=== PATIENT | female | born 1945 | race Caucasian/White ===

== ENCOUNTER → 2017-05-09 10:35 | Outpatient (CLI) | payer MEDICARE, SELFPAY ==
[2017-05-09 13:36] LABS: Basophils # 0.1 K/mm3 (0-0.2); Basophils % 0.5 % (0.1-2.0); Eosinophils # 0.3 K/mm3 (0.0-0.4); Hematocrit 39.6 % (37.0-47.0); Hemoglobin 12.8 g/dL (12.2-16.2); Lymphocytes # 2.7 K/mm3 (0.7-4.5); Lymphocytes % 25.3 K/mm3 (10-50); Mean Corpuscular HGB Conc 32.5 g/dL (31.8-35.4); Mean Corpuscular Hemoglobin 30.1 pg (27.0-31.2); Mean Corpuscular Volume 92.8 fl (81-99); Mean Platelet Volume 8.4 fl (7.4-10.4); Monocytes # 0.4 K/mm3 (0.1-1.0); Monocytes % 4.2 % (1.7-9.3); Neutrophils % 66.9 % (37.0-80.0); Platelet Count 273 K/mm3 (142-424); Red Blood Count 4.27 M/mm3 (4.20-5.40); Red Cell Distribution Width 14.5 % (11.5-17.5); White Blood Count 10.5 K/mm3 (4.8-10.8)
[2017-05-09 14:43] LABS: Albumin Level 3.4 gm/dL (3.4-5.0); Phosphorous 4.2 mg/dL (2.4-4.9)
[2017-05-09 14:47] LABS: Aspartate Amino Transferase 9 U/L (15-37)
[2017-05-09 15:07] LABS: Alanine Aminotransferase 33 U/L (12-78); Alkaline Phosphatase 107 U/L (46-116); Bilirubin,Direct 0.1 mg/dL (0.0-0.2); Bilirubin,Total 0.3 mg/dL (0.2-1.0); Calcium 8.9 mg/dL (8.5-10.1); Creatinine,Serum 1.91 mg/dL (0.55-1.02); Estimated Glomerular Filt Rate 26 ml/min (>60); GFR (African American) 32 ML/MIN (>60); Total Protein,Serum 6.8 gm/dL (6.4-8.2)
[2017-05-10 19:09] LABS: Vitamin D 25 Hydroxy 26.5 ng/mL (30.0-100.0)
[2017-05-11 21:18] LABS: Parathyroid Hormone Intact 42 pg/mL (15-65)
== END ==
PROVIDERS: PCP Internal Medicine Adolescent Medicine; Visit Provider Orthopaedic Surgery
DX: M81.0 Age-related osteoporosis without current pathological fracture (principal); Z79.899 Other long term (current) drug therapy
CPT/HCPCS: 36415; 80076; 82310; 82565; 82652; 83970; 84100; 85025

== ENCOUNTER → 2017-06-26 09:54 | Outpatient (CLI) | payer MEDICARE, SELFPAY ==
[2017-06-26 10:18] LABS: Anion Gap 10.6 mEq/L (5-15); Blood Urea Nitrogen 31 mg/dL (7-18); Carbon Dioxide 28 mmol/L (21.0-32.0); Chloride 105 mmol/L (98-107); Creatinine,Serum 1.52 mg/dL (0.55-1.02); Estimated Glomerular Filt Rate 34 ml/min (>60); GFR (African American) 41 ML/MIN (>60); Glucose 96 mg/dL (74-106); Potassium 3.6 mmoL/L (3.5-5.1); Sodium 140 mmol/L (136-145)
== END ==
PROVIDERS: Visit Provider Internal Medicine Adolescent Medicine
DX: E87.5 Hyperkalemia (principal)
CPT/HCPCS: 36415; 80048

== ENCOUNTER → 2017-09-17 12:02 | Outpatient (CLI) | payer MEDICARE, SELFPAY ==
--- NOTE | 2017-09-17 12:16 | XR_ITS ---
EXAM: XR lumbar spine min 4V HISTORY: ITS.REASON: LOW BACK PAIN ORDERING PHYSICIAN: Lukas Birmingham MD PATIENT AGE: 71 years COMPARISON: [id number] FINDINGS: There is normal alignment. No acute fracture or dislocation. Degenerative disc disease is present in the lower thoracic and lumbar spine from T9 to S1. There is mild anterolisthesis of L5 on S1 of 5 mm. Endplate osteophytes are present at multiple levels and there is facet hypertrophic change at L4-5 and L5-S1. There is mild sclerosis of the infra aspect of the SI joints. Injection granuloma noted in the right gluteal region. IMPRESSION: Lumbar spondylosis with degenerative disc disease and facet arthritic change
[2017-09-17 13:47] LABS: Anion Gap 13.6 mEq/L (5-15); Blood Urea Nitrogen 26 mg/dL (7-18); Carbon Dioxide 25 mmol/L (21.0-32.0); Chloride 104 mmol/L (98-107); Creatinine,Serum 1.58 mg/dL (0.55-1.02); Estimated Glomerular Filt Rate 32 ml/min (>60); GFR (African American) 39 ML/MIN (>60); Glucose 100 mg/dL (74-106); Magnesium 1.6 mg/dL (1.4-2.2); Potassium 3.6 mmoL/L (3.5-5.1); Sodium 139 mmol/L (136-145)
== END ==
PROVIDERS: PCP Internal Medicine Adolescent Medicine; Visit Provider Internal Medicine Adolescent Medicine
DX: M54.5 Low back pain (principal)
CPT/HCPCS: 36415; 72110; 80048; 83735

== ENCOUNTER → 2017-09-29 08:59 | Outpatient (POV) | payer MEDICARE, SELFPAY ==
[2017-09-29 09:03] VITALS: BP 150/70; PULSE 58; RESP 18; O2SAT 98
--- NOTE | 2017-09-29 09:27 | HMH.PMCON ---
Assessment and Plan (1) Lumbar spondylosis Current visit: Yes Status: Chronic Category: Medical Code(s): M47.816 - Spondylosis without myelopathy or radiculopathy, lumbar region - Assessment and plan all Dx Assessment and Plan for all problems:: We will plan an L4-L5 L5-S1 facet joint injection/medial branch block bilaterally. Patient's tried and failed stretching therapies, medications, anti-inflammatories. Patient does have diagnostic imaging showing her spondylosis. Patient has not tried injections previously. Patient is not on any anticoagulation. I will follow-up with the patient after her injections and we will reassess her symptoms at that time. This note was dictated using voice recognition software and may contain errors or omissions HPI - Data of Consult Consult date: 09/29/17 Requesting Physician: Angeles Lopez APRN Primary Care Provider: Lukas Birmingham MD Family Provider: Lukas Birmingham MD - Consult Narrative Reason for consult: back pain History of present illness: Ms. Raza is a 71 year old female presents today for consultation in regards to her low back pain. Patient had a femur break back in January. This was secondary to osteoporosis. Patient had surgery to stabilize the femur with a alisa being placed. Patient has completed physical therapy. Patient states that her gait has changed since this. Patient states that most of her pain however is in her low back she states all activity increases her pain while nothing really relieves it. Patient denies any numbness or tingling or any pain radiating down her leg she states that it is all focused in her low back. Patient rates her pain a 5 out of 10 today. Patient is continued to do stretching exercises. Patient is interested in interventional means of controlling her pain. CC: Angeles Lopez APRN [facility] History I have reviewed the patient's past medical history: Yes Medical History: Reports:: Hypertension Denies:: Diabetes Mellitus Type 1 Other Medical History: Reports: Arthritis Amputation: No Fractures: Yes - *Social History Smoking Status: Never smoker Alcohol Intake: never Occupational Status: other Housing: house - Psychiatric History Expresses thoughts of harming self/others: None Suicide Plan Description: No Plan *Family Hx:: Unable to obtain Review of Systems - Review of Systems ROS General: no recent weight change, no fever, no sleep disturbances Respiratory: no cough, no shortness of air, no recurring pulmonary infections Cardiovascular/Peripheral Vascular: No chest pain, No palpitations, no edema, no shortness of breath. Gastrointestinal: no incontinence, normal bowel movements reported Genitourinary: no incontinence Musculoskeletal: Back pain Psychiatric: normal mood/ affect Neurological: [denies weakness in extremities], [denies balance issues] Meds Allergies Allergy/AdvReac Type Severity Reaction Status Date / Time codeine Allergy Unknown NA-NAUSEA/V Unverified 03/18/17 14:33 OMITING SOLAREZGEL Allergy Unknown S-BLISTERING Uncoded 03/18/17 14:33 WELTS Objective Vital signs: Pulse Resp BP Pulse Ox 58 L 18 150/70 98 09/29/17 09:03 09/29/17 09:03 09/29/17 09:03 09/29/17 09:03 Narrative: Physical Exam General: Alert and oriented x3, no acute distress, pleasant and cooperative, [on room air] Lungs: Resps E/U, Symmetrical chest expansion, Eyes: PERRL Musculoskeletal: Flexion and extension of lumbar spine somewhat guarded secondary to pain, deep tendon reflexes normal, strength in upper and lower extremities [5/5], slightly antalgic gait noted, positive Kemps test of the lumbar spine. 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
--- NOTE | 2017-09-29 09:30 | P.CONS_ITS ---
Assessment and Plan (1) Lumbar spondylosis Current visit: Yes Status: Chronic Category: Medical Code(s): M47.816 - Spondylosis without myelopathy or radiculopathy, lumbar region - Assessment and plan all Dx Assessment and Plan for all problems:: We will plan an L4-L5 L5-S1 facet joint injection/medial branch block bilaterally. Patient's tried and failed stretching therapies, medications, anti -inflammatories. Patient does have diagnostic imaging showing her spondylosis. Patient has not tried injections previously. Patient is not on any anticoagulation. I will follow-up with the patient after her injections and we will reassess her symptoms at that time. This note was dictated using voice recognition software and may contain errors or omissions HPI - Data of Consult Consult date: 09/29/17 Requesting Physician: Angeles Lopez APRN Primary Care Provider: Lukas Birmingham MD Family Provider: Lukas Birmingham MD - Consult Narrative Reason for consult: back pain History of present illness: Ms. Raza is a 71 year old female presents today for consultation in regards to her low back pain. Patient had a femur break back in January. This was secondary to osteoporosis. Patient had surgery to stabilize the femur with a alisa being placed. Patient has completed physical therapy. Patient states that her gait has changed since this. Patient states that most of her pain however is in her low back she states all activity increases her pain while nothing really relieves it. Patient denies any numbness or tingling or any pain radiating down her leg she states that it is all focused in her low back. Patient rates her pain a 5 out of 10 today. Patient is continued to do stretching exercises. Patient is interested in interventional means of controlling her pain. CC: Angeles Lopez APRN [facility] History I have reviewed the patient's past medical history: Yes Medical History: Reports:: Hypertension Denies:: Diabetes Mellitus Type 1 Other Medical History: Reports: Arthritis Amputation: No Fractures: Yes - *Social History Smoking Status: Never smoker Alcohol Intake: never Occupational Status: other Housing: house - Psychiatric History Expresses thoughts of harming self/others: None Suicide Plan Description: No Plan *Family Hx:: Unable to obtain Review of Systems - Review of Systems ROS General: no recent weight change, no fever, no sleep disturbances Respiratory: no cough, no shortness of air, no recurring pulmonary infections Cardiovascular/Peripheral Vascular: No chest pain, No palpitations, no edema, no shortness of breath. Gastrointestinal: no incontinence, normal bowel movements reported Genitourinary: no incontinence Musculoskeletal: Back pain Psychiatric: normal mood/ affect Neurological: [denies weakness in extremities], [denies balance issues] Meds Allergies Allergy/AdvReac Type Severity Reaction Status Date / Time codeine Allergy Unknown NA-NAUSEA/V Unverified 03/18/17 14:33 OMITING SOLAREZGEL Allergy Unknown S-BLISTERING Uncoded 03/18/17 14:33 WELTS Objective Vital signs: Pulse Resp BP Pulse Ox 58 L 18 150/70 98 09/29/17 09:03 09/29/17 09:03 09/29/17 09:03 09/29/17 09:03 Narrative: Physical Exam General: Alert and oriented x3, no acute distress, pleasant and cooperative, [ on room air] Lungs: Resps
== END ==
PROVIDERS: Family Provider Internal Medicine Adolescent Medicine; PCP Internal Medicine Adolescent Medicine; Visit Provider Clinical Nurse Specialist Family Health
DX: M47.816 Spondylosis without myelopathy or radiculopathy, lumbar region (principal)
CPT/HCPCS: 99202

== ENCOUNTER → 2017-11-10 11:18 | Outpatient (POV) | payer MEDICARE, SELFPAY ==
[2017-11-10 11:27] VITALS: BP 150/77; PULSE 75; RESP 18; O2SAT 98; BMI 29.2
--- NOTE | 2017-11-10 12:53 | P.CONS_ITS ---
[facility] Pain Management SOAP Note Subjective:: Patient is a pleasant 72-year-old white female who we are treating for back pain secondary to lumbar spondylosis and facet arthropathy. Patient is following up after medial branch block at L4-L5 L5-S1 bilaterally. Patient states that she did not get any relief from her injections. Patient is on anti- inflammatories. Patient has had a femur repair by Dr. ta for up. Patient does have lumbar x-ray however has not had any MRI imaging. We will order this today she rates her pain a 6 out of 10 today. Patient would like to return to work. She does not have radiation of pain into her legs. ROS General: no recent weight change, no fever, no sleep disturbances Respiratory: no cough, no shortness of air, no recurring pulmonary infections Cardiovascular/Peripheral Vascular: No chest pain, No palpitations, no edema, no shortness of breath. Gastrointestinal: no incontinence, normal bowel movements reported Genitourinary: no incontinence Musculoskeletal: Back pain Psychiatric: normal mood/ affect Neurological: [denies weakness in extremities], [denies balance issues] Objective:: Physical Exam General: Alert and oriented x3, no acute distress, pleasant and cooperative, [ on room air] Lungs: Resps E/U, Symmetrical chest expansion, Eyes: PERRL Musculoskeletal: Flexion and extension of lumbar spine somewhat guarded secondary to pain, deep tendon reflexes normal, strength in upper and lower extremities [5/5], slightly antalgic gait noted Neurological: 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 If patient is unable to have an MRI we will order a CT scan. We will discern pathology and make a plan of care at her next visit. This note was dictated using voice recognition software and may contain errors or omissions
== END ==
PROVIDERS: Family Provider Internal Medicine Adolescent Medicine; PCP Internal Medicine Adolescent Medicine; Visit Provider Clinical Nurse Specialist Family Health
DX: M51.36 Other intervertebral disc degeneration, lumbar region (principal); M47.896 Other spondylosis, lumbar region; M54.06 Panniculitis affecting regions of neck and back, lumbar region; Z79.1 Long term (current) use of non-steroidal anti-inflammatories (NSAID)
CPT/HCPCS: 99212

== ENCOUNTER → 2017-11-17 07:40 | Outpatient (CLI) | payer MEDICARE, SELFPAY ==
--- NOTE | 2017-11-17 07:50 | MR_ITS ---
MR lumbar spine wo con HISTORY: Low back pain ITS.REASON: BACK PAIN ORDERING PHYSICIAN: Khris Fuentes MD PATIENT AGE: 72 years Comparison: 09/17/2017 TECHNIQUE: Standard multiplanar multiecho sequences are performed without contrast. 3-D MIP and myelographic images are also rendered and reviewed FINDINGS: The spinal cord ends at the T12-L1 level. T10-T11: Mild left-sided facet and ligamentum flavum hypertrophy with mild left lateral recess narrowing T11-T12: Mild degenerative disc disease with small left perineural cyst at 5 mm. T12-L1: 4 mm left perineural cyst. L1-L2: Degenerative disc disease with decrease in the disc space and small anterior osteophyte. Small area of sclerosis involves the L1 vertebral body posteriorly and inferiorly. L2-L3: Minimal bulging disc with mild facet and ligamentum flavum hypertrophy with mild bilateral foraminal narrowing. L3-L4: There is a small left paracentral and foraminal disc protrusion. This along with concentric bulging disc and moderate facet and ligamentum flavum hypertrophy results in severe left lateral recess narrowing with impingement upon the left L4 nerve root. There is also mild right lateral recess narrowing and moderate left-sided foraminal narrowing as well. There is narrowing of the canal at this level secondary to the facet and ligamentum flavum hypertrophy. L4-5: There is a small left paracentral disc protrusion impinging upon the left L5 nerve root. There is facet and ligamentum flavum hypertrophy with bilateral lateral recess narrowing and moderate bilateral foraminal narrowing. There is transverse narrowing of the canal at this level. L5-S1: Grade 1 spondylolytic spondylolisthesis with bulging disc and facet hypertrophic change with moderate to severe bilateral foraminal narrowing. Incidental note made of bilateral peripelvic renal cysts. IMPRESSION: 1. Abnormal MRI of the lumbar spine with multilevel lumbar spondylosis with degenerative disc disease along with facet and ligamentum hypertrophy with foraminal and lateral recess narrowing. Please see above detailed description at each level. 2. L3-L4: There is a small left paracentral and foraminal disc protrusion. This along with concentric bulging disc and moderate facet and ligamentum flavum hypertrophy results in severe left lateral recess narrowing with impingement upon the left L4 nerve root. There is also mild right lateral recess narrowing and moderate left-sided foraminal narrowing as well. There is narrowing of the canal at this level secondary to the facet and ligamentum flavum hypertrophy. 3. L4-5: There is a small left paracentral disc protrusion impinging upon the left L5 nerve root. There is facet and ligamentum flavum hypertrophy with bilateral lateral recess narrowing and moderate bilateral foraminal narrowing. There is transverse narrowing of the canal at this level. 4. L5-S1: Grade 1 spondylolytic spondylolisthesis with bulging disc and facet hypertrophic change with moderate to severe bilateral foraminal narrowing
== END ==
PROVIDERS: Family Provider Internal Medicine Adolescent Medicine; PCP Internal Medicine Adolescent Medicine; Visit Provider Anesthesiology
DX: M54.9 Dorsalgia, unspecified (principal)
CPT/HCPCS: 72148; 76376

== ENCOUNTER → 2017-11-24 11:36 | Outpatient (POV) | payer MEDICARE, SELFPAY ==
[2017-11-24 11:48] VITALS: BP 128/60; PULSE 76; RESP 18; O2SAT 98; BMI 35.4
--- NOTE | 2017-11-24 12:59 | HMH.PAINSOAP ---
[facility] Pain Management SOAP Note Subjective:: Patient is a 72-year-old white female who we are treating for back pain secondary to lumbar spondylosis and facet arthropathy. Patient has any injections in the past with not much relief. Patient is on anti-inflammatories. We send her for new MRI shows nerve impingement of the L4 and L5 levels. Patient has not been seen by neurosurgeon before. She rates pain a 7 out of 10. Patient states her pain is in her low back and down her legs. Patient has numbness and tingling in her legs as well. ROS General: no recent weight change, no fever, no sleep disturbances Respiratory: no cough, no shortness of air, no recurring pulmonary infections Cardiovascular/Peripheral Vascular: No chest pain, No palpitations, no edema, no shortness of breath. Gastrointestinal: no incontinence, normal bowel movements reported Genitourinary: no incontinence Musculoskeletal: Back pain, leg pain Psychiatric: normal mood/ affect Neurological: [denies weakness in extremities], [denies balance issues] Objective:: Physical Exam General: Alert and oriented x3, no acute distress, pleasant and cooperative, [on room air] Lungs: Resps E/U, Symmetrical chest expansion, Eyes: PERRL Musculoskeletal: Flexion and extension of lumbar spine somewhat guarded secondary to pain, deep tendon reflexes normal, strength in upper and lower extremities [5/5], [abnormal gait noted] Neurological: 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 I will follow-up with the patient of this. Patient instructed to bring her MRI with her. This note was dictated using voice recognition software and may contain errors or omissions
--- NOTE | 2017-11-24 13:03 | P.CONS_ITS ---
[facility] Pain Management SOAP Note Subjective:: Patient is a 72-year-old white female who we are treating for back pain secondary to lumbar spondylosis and facet arthropathy. Patient has any injections in the past with not much relief. Patient is on anti-inflammatories. We send her for new MRI shows nerve impingement of the L4 and L5 levels. [facility] has not been seen by neurosurgeon before. She rates pain a 7 out of 10. Patient states her pain is in her low back and down her legs. Patient has numbness and tingling in her legs as well. ROS General: no recent weight change, no fever, no sleep disturbances Respiratory: no cough, no shortness of air, no recurring pulmonary infections Cardiovascular/Peripheral Vascular: No chest pain, No palpitations, no edema, no shortness of breath. Gastrointestinal: no incontinence, normal bowel movements reported Genitourinary: no incontinence Musculoskeletal: Back pain, leg pain Psychiatric: normal mood/ affect Neurological: [denies weakness in extremities], [denies balance issues] Objective:: Physical Exam General: Alert and oriented x3, no acute distress, pleasant and cooperative, [on room air] Lungs: Resps E/U, Symmetrical chest expansion, Eyes: PERRL Musculoskeletal: Flexion and extension of lumbar spine somewhat guarded secondary to pain, deep tendon reflexes normal, strength in upper and lower extremities [5/5], [abnormal gait noted] Neurological: speech clear, 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 I will follow-up with the patient of this. Patient instructed to bring her MRI with her. This note was dictated using voice recognition software and may contain errors or omissions
== END ==
PROVIDERS: Family Provider Internal Medicine Adolescent Medicine; PCP Internal Medicine Adolescent Medicine; Visit Provider Clinical Nurse Specialist Family Health
DX: M51.16 Intervertebral disc disorders with radiculopathy, lumbar region (principal)
CPT/HCPCS: 99213

== ENCOUNTER → 2018-08-26 14:58 | Outpatient (CLI) | payer MEDICARE, SELFPAY ==
--- NOTE | 2018-08-26 15:03 | XR_ITS ---
EXAM: XR lumbar spine min 4V HISTORY: ITS.REASON: S/P FALL, LOW BACK PAIN ORDERING PHYSICIAN: Cabrera Barriga MD PATIENT AGE: 72 years COMPARISON: 11/17/2017 FINDINGS: Mild multilevel degenerative disc disease is present. Great 1-2 spondylolisthesis is present at L5-S1. No acute fracture or dislocation. No significant change from the previous exam. Mild facet arthritic changes are present and there is mild degenerative change within the SI joints. IMPRESSION: Lumbar spondylosis as detailed above not significant changed with no acute finding
--- NOTE | 2018-08-26 15:03 | XR_ITS ---
XR sacrum coccyx min 2V CLINICAL INDICATION: Pain following injury ITS.REASON: S/P FALL, LOW BACK PAIN ORDERING PHYSICIAN: Cabrera Barriga MD PATIENT AGE: 72 years Comparison: None FINDINGS: There are healing fractures involving the right superior and inferior pubic ramus as well as a junction of the right ischium inferior to the acetabulum. There is sclerosis of the SI joints. No acute fractures apparent. There is 10 mm anterolisthesis of L5 on S1. IMPRESSION: Old right-sided pubic rami and ischium fractures No acute fracture.
== END ==
PROVIDERS: PCP Family Medicine; Visit Provider Family Medicine
DX: M54.5 Low back pain (principal); W19.XXXA Unspecified fall, initial encounter
CPT/HCPCS: 72110; 72220

== ENCOUNTER → 2018-09-11 13:38 | Outpatient (CLI) | payer MEDICARE, SELFPAY ==
[2018-09-11 14:00] LABS: Anion Gap 14.8 mEq/L (5-15); Blood Urea Nitrogen 35 mg/dL (7-18); Carbon Dioxide 25 mmol/L (21.0-32.0); Chloride 103 mmol/L (98-107); Estimated Glomerular Filt Rate 25 ml/min (>60); GFR (African American) 30 ML/MIN (>60); Glucose 101 mg/dL (74-106); Potassium 4.8 mmoL/L (3.5-5.1); Sodium 138 mmol/L (136-145)
== END ==
PROVIDERS: Visit Provider Internal Medicine Adolescent Medicine
DX: R79.89 Other specified abnormal findings of blood chemistry (principal)
CPT/HCPCS: 36415; 80048

== ENCOUNTER → 2018-09-28 10:25 | Outpatient (CLI) | payer MEDICARE, SELFPAY ==
--- NOTE | 2018-09-28 10:59 | MM_ITS ---
MM Dig screening mamm BI w/CAD CAD Screening COMPARISON: Digital mammograms with CAD 07/22/2016 and digital mammograms 01/20/2000 INDICATION: There is a history of breast cancer patient's daughter and 3 sisters TECHNIQUE: Standard CC and MLO images were obtained. R2 CAD reviewed. FINDINGS: The breasts are composed primarily of fat with very minimal scattered fibroglandular densities in each breast. There are scattered benign-appearing microcalcifications in each breast. There is no suspicious lesion and there are no suspicious microcalcifications. IMPRESSION: Fatty type breast parenchyma with no suspicious lesion seen BI-RADS Category: 2 Benign Finding(s) RECOMMENDED FOLLOW-UP: 1YR - 1 YEAR FOLLOW-UP (A letter has been sent to the patient regarding results of the study.)
[2018-09-28 13:50] LABS: Anion Gap 18.9 mEq/L (5-15); Blood Urea Nitrogen 32 mg/dL (7-18); Calcium 9.1 mg/dL (8.5-10.1); Carbon Dioxide 22 mmol/L (21.0-32.0); Chloride 105 mmol/L (98-107); Creatinine,Serum 1.75 mg/dL (0.55-1.02); Estimated Glomerular Filt Rate 29 ml/min (>60); GFR (African American) 35 ML/MIN (>60); Glucose 104 mg/dL (74-106); Potassium 3.9 mmoL/L (3.5-5.1); Sodium 142 mmol/L (136-145)
== END ==
PROVIDERS: PCP Internal Medicine Adolescent Medicine; Visit Provider Internal Medicine Adolescent Medicine
DX: Z12.31 Encounter for screening mammogram for malignant neoplasm of breast (principal); R79.89 Other specified abnormal findings of blood chemistry
CPT/HCPCS: 36415; 77067; 80048

== ENCOUNTER → 2019-02-02 14:54 | Outpatient (POV) | payer MEDICARE, SELFPAY | PROVIDERS: Visit Provider Dermatology | DX: Z00.00 Encounter for general adult medical examination without abnormal findings (principal) ==

== ENCOUNTER → 2020-08-04 10:03 | Outpatient (CLI) | payer MEDICARE, SELFPAY ==
--- NOTE | 2020-08-04 10:09 | XR_ITS ---
PROCEDURE: XR DEXA AXIAL SKELETON CLINICAL HISTORY: OSTEOPOROSIS Pop in lt femur COMPARISON: No exams were available for comparison FINDINGS: The right hip BMD is 0.617 with a T-score of -2.1. The left forearm BMD is 0.525 with a T-score of -2.8. The lumbar spine BMD is 1.080 with a T-score of 0.3. IMPRESSION: This patient is considered osteoporotic according to the World Health Organization criteria. Fracture risk is high. Treatment is advised. Based on these results a follow-up exam is recommended in 1 year. Dictated by: Ollie Baez MD 08/05/2020 07:58 Ollie Baez MD in [place] 08/05/2020 07:58
--- NOTE | 2020-08-04 10:11 | MM_ITS ---
PROCEDURE INFORMATION: Exam: MG Screening 3D Mammography Exam date and time: 08/04/2020 10:11 AM Age: 74 years old Clinical indication: Encounter for screening mammogram for malignant neoplasm of breast TECHNIQUE: Imaging protocol: Screening tomosynthesis and 2D mammography including computer-aided detection (CAD) when performed. COMPARISON: 1. MG DIG MAMM-SCREEN STEFANO 09/28/2018 11:09 AM 2. MG DMSB DIG MAMM-SCREEN STEFANO W/CAD 07/22/2016 10:00 AM FINDINGS: MAMMOGRAPHY: Breast composition: The breasts are almost entirely fatty. Mass: None. Architectural distortion: None. Calcifications: No suspicious calcifications. Asymmetric density: None. Skin thickening: None. Axillary adenopathy: None. IMPRESSION: No mammographic evidence of malignancy. Annual screening is recommended unless otherwise clinically indicated. ASSESSMENT: BI-RADS Category 1: Negative
== END ==
PROVIDERS: PCP Internal Medicine Adolescent Medicine; Visit Provider Internal Medicine Adolescent Medicine
DX: Z12.31 Encounter for screening mammogram for malignant neoplasm of breast (principal); M81.0 Age-related osteoporosis without current pathological fracture
CPT/HCPCS: 77063; 77067; 77080

== ENCOUNTER → 2020-08-09 09:39 | Outpatient (CLI) | payer MEDICARE, SELFPAY ==
[2020-08-09 14:35] LABS: Basophils # 0.1 K/mm3 (0-0.2); Basophils % 0.8 % (0.1-2.0); Eosinophils # 0.2 K/mm3 (0.0-0.4); Eosinophils % 2.7 % (0.1-12.0); Hematocrit 39.5 % (37.0-47.0); Lymphocytes # 2.5 K/mm3 (0.7-4.5); Lymphocytes % 36.4 % (10-50); Mean Corpuscular HGB Conc 32.9 g/dL (31.8-35.4); Mean Corpuscular Hemoglobin 31.1 pg (27.0-31.2); Mean Corpuscular Volume 94.4 fl (81-99); Mean Platelet Volume 9.1 fl (7.4-10.4); Monocytes # 0.3 K/mm3 (0.1-1.0); Monocytes % 4.6 % (1.7-9.3); Neutrophils # 3.9 K/mm3 (1.8-7.8); Neutrophils % 55.6 % (37.0-80.0); Platelet Count 241 K/mm3 (142-424); Red Blood Count 4.19 M/mm3 (4.20-5.40); Red Cell Distribution Width 14.6 % (11.5-17.5)
[2020-08-09 14:40] LABS: Alanine Aminotransferase 27 U/L (12-78); Albumin Level 3.9 g/dl (3.5-5.0); Albumin/Globulin Ratio 1.6 (1.1-1.8); Alkaline Phosphatase 72 U/L (38-126); Anion Gap 9.8 mEq/L (5-15); Aspartate Amino Transferase 26 U/L (14-36); Bilirubin,Total 0.5 mg/dl (0.2-1.3); Blood Urea Nitrogen 25 mg/dl (7-17); Calcium 9.4 mg/dl (8.4-10.2); Carbon Dioxide 28 mmol/L (22.0-30.0); Chloride 107 mmol/L (98-107); Chol/HDL Ratio 5.7 (1-3.5); Cholesterol 238 mg/dl (140-200); Estimated Glomerular Filt Rate 49 ml/min (>60); GFR (African American) 59 ML/MIN (>60); Globulin 2.4 g/dL (1.3-3.2); Glucose 85 mg/dl (74-100); HDL Cholesterol 42 mg/dl (40-60); Potassium 3.8 mmoL/L (3.5-5.1); Sodium 141 mmol/L (136-145); Total Protein,Serum 6.3 g/dl (6.3-8.2); Triglycerides 197 mg/dl (30-150); Uric Acid 3.6 mg/dl (2.5-6.2); VLDL Cholesterol 39 mg/dL (0-40)
[2020-08-09 14:55] LABS: 25-OH Vitamin D, Total 41.8 ng/mL (30-100)
[2020-08-09 15:12] LABS: Thyroid Stimulating Hormone 1.03 uIU/mL (0.465-4.68)
== END ==
PROVIDERS: Visit Provider Nurse Practitioner Family
DX: R73.9 Hyperglycemia, unspecified (principal); E78.2 Mixed hyperlipidemia; E79.0 Hyperuricemia without signs of inflammatory arthritis and tophaceous disease; E03.9 Hypothyroidism, unspecified; M81.0 Age-related osteoporosis without current pathological fracture
CPT/HCPCS: 36415; 80053; 80061; 82306; 83036; 84443; 84550; 85025

== ENCOUNTER → 2020-10-16 17:35 | Outpatient (CLI) | payer MEDICARE, SELFPAY ==
--- NOTE | 2020-10-16 | XR_ITS ---
PROCEDURE INFORMATION: Exam: XR Bilateral Sacroiliac Joints Exam date and time: 10/16/2020 12:00 AM Age: 75 years old Clinical indication: Patient HX: Low back pain; No injury; H/o osteoporosis TECHNIQUE: Imaging protocol: XR Bilateral XR of the sacroiliac joints. Views: 3 or more views. COMPARISON: CR XR LUMBAR SPINE MIN 4V 10/16/2020 5:43 PM FINDINGS: Bones/joints: Moderate sacroiliac degenerative changes with sclerosis and joint space narrowing, left greater than right. Degenerative changes in the pubic symphysis. Pubic symphysis and bilateral sacroiliac joints are congruent. Sacral ala appear intact. Chronic posttraumatic changes in the right pubic rami again noted. Grossly stable appearance of visualized portion the left proximal femur fixation with intramedullary alisa and cannulated trochanteric fixation nail. No acute fracture or malalignment. Soft tissues: Normal. IMPRESSION: 1. No acute osseous abnormality. 2. Moderate bilateral sacroiliac osteoarthrosis, left greater than right.
--- NOTE | 2020-10-16 | XR_ITS ---
PROCEDURE INFORMATION: Exam: XR Lumbosacral Spine Exam date and time: 10/16/2020 5:43 PM Age: 75 years old Clinical indication: Patient HX: Chronic low back pain TECHNIQUE: Imaging protocol: XR of the lumbosacral spine. Views: 4 or 5 views. COMPARISON: SPLUMBWO MR lumbar spine wo con 11/17/2017 7:57 AM FINDINGS: Bones/joints: Grade 2 spondylolisthesis of L5 on S1. The lumbar spine demonstrates mild degenerative changes at multiple levels. The facet joints demonstrate mild degenerative hypertrophy and sclerosis. Mild compression deformity at L2 present, age is indeterminate. Soft tissues: Unremarkable. Vasculature: The vasculature demonstrates diffuse mild atherosclerotic calcification. IMPRESSION: 1. Grade 2 spondylolisthesis of L5 on S1. 2. Mild compression deformity at L2 present, age is indeterminate.
== END ==
PROVIDERS: PCP Internal Medicine Adolescent Medicine; Visit Provider Internal Medicine Adolescent Medicine
DX: M54.5 Low back pain (principal); M81.0 Age-related osteoporosis without current pathological fracture
CPT/HCPCS: 72083; 72110; 72202

== ENCOUNTER → 2021-07-13 07:51 | Outpatient (CLI) | payer MEDICARE, SELFPAY ==
--- NOTE | 2021-07-13 07:57 | CT_ITS ---
FINAL REPORT TECHNIQUE: Thin section axial CT images with coronal and sagittal reformats were performed. This study was performed with techniques to keep radiation doses as low as reasonably achievable (ALARA). Individualized dose reduction techniques using automated exposure control or adjustment of mA and/or kV according to the patient''s size were employed. CLINICAL HISTORY: RT HIP PAIN FINDINGS: No acute fracture is identified. The joint space is well preserved. There are minimal hypertrophic changes at the acetabular margin. There is old healed fracture deformity of the medial inferior pubic ramus and lateral superior pubic ramus. IMPRESSION: No acute fracture Reviewed, Interpreted and Dictated by Kenneth Bryson MD Transcribed by Vivian Sepulveda Authenticated by Kenneth Bryson MD on 07/13/2021 11:17:17 AM [facility]
== END ==
PROVIDERS: PCP Internal Medicine Adolescent Medicine; Visit Provider Orthopaedic Surgery
DX: M25.551 Pain in right hip (principal)
CPT/HCPCS: 73700

== ENCOUNTER → 2021-10-24 15:02 | Outpatient (CLI) | payer MEDICARE, SELFPAY ==
[2021-10-24 16:20] LABS: Basophils # 0.1 K/mm3 (0-0.2); Basophils % 0.7 % (0.1-2.0); Eosinophils # 0.1 K/mm3 (0.0-0.4); Eosinophils % 1.6 % (0.1-12.0); Hematocrit 42.4 % (37.0-47.0); Hemoglobin 13.3 g/dL (12.2-16.2); Lymphocytes # 1.8 K/mm3 (0.7-4.5); Lymphocytes % 21.3 % (10-50); Mean Corpuscular HGB Conc 31.4 g/dL (31.8-35.4); Mean Corpuscular Hemoglobin 30.8 pg (27.0-31.2); Monocytes # 0.5 K/mm3 (0.1-1.0); Monocytes % 5.9 % (1.7-9.3); Neutrophils # 5.8 K/mm3 (1.8-7.8); Neutrophils % 70.5 % (37.0-80.0); Platelet Count 278 K/mm3 (142-424); Red Blood Count 4.32 M/mm3 (4.20-5.40); Red Cell Distribution Width 14.3 % (11.5-17.5); White Blood Count 8.3 K/mm3 (4.8-10.8)
[2021-10-24 16:22] LABS: Hemoglobin A1C 5.2 % (4.0-6.0)
[2021-10-24 16:32] LABS: Alanine Aminotransferase 24 U/L (12-78); Albumin Level 3.8 g/dl (3.5-5.0); Albumin/Globulin Ratio 1.7 (1.1-1.8); Alkaline Phosphatase 113 U/L (38-126); Anion Gap 10.9 mEq/L (5-15); Aspartate Amino Transferase 25 U/L (14-36); Blood Urea Nitrogen 17 mg/dl (7-17); Calcium 9.3 mg/dl (8.4-10.2); Carbon Dioxide 29 mmol/L (22.0-30.0); Chloride 106 mmol/L (98-107); Estimated Glomerular Filt Rate 44 ml/min (>60); GFR (African American) 53 ML/MIN (>60); Globulin 2.3 g/dL (1.3-3.2); Glucose 98 mg/dl (74-100); Potassium 3.9 mmoL/L (3.5-5.1); Sodium 142 mmol/L (136-145); Total Protein,Serum 6.1 g/dl (6.3-8.2); Uric Acid 3.9 mg/dl (2.5-6.2)
[2021-10-24 16:46] LABS: Bilirubin,Total < 0.1 mg/dl (0.2-1.3)
== END ==
PROVIDERS: PCP Internal Medicine Adolescent Medicine; Visit Provider Internal Medicine Adolescent Medicine
DX: E03.9 Hypothyroidism, unspecified (principal); E79.0 Hyperuricemia without signs of inflammatory arthritis and tophaceous disease
CPT/HCPCS: 36415; 80053; 83036; 84443; 84550; 85025

== ENCOUNTER → 2021-11-08 14:09 | Outpatient (CLI) | payer MEDICARE, SELFPAY ==
[2021-11-08 15:35] LABS: 25-OH Vitamin D, Total 44.8 ng/mL (30-100)
== END ==
PROVIDERS: PCP Internal Medicine Adolescent Medicine; Visit Provider Neurological Surgery
DX: Z01.818 Encounter for other preprocedural examination (principal); M47.816 Spondylosis without myelopathy or radiculopathy, lumbar region; M81.0 Age-related osteoporosis without current pathological fracture
CPT/HCPCS: 36415; 82306

== ENCOUNTER → 2022-01-01 15:32 | Outpatient (CLI) | payer MEDICARE, SELFPAY ==
[2022-01-01 16:08] LABS: Basophils # 0.1 K/mm3 (0-0.2); Basophils % 0.8 % (0.1-2.0); Eosinophils # 0.1 K/mm3 (0.0-0.4); Eosinophils % 0.6 % (0.1-12.0); Hematocrit 41.4 % (37.0-47.0); Hemoglobin 13.2 g/dL (12.2-16.2); Lymphocytes # 2.2 K/mm3 (0.7-4.5); Mean Corpuscular HGB Conc 31.9 g/dL (31.8-35.4); Mean Corpuscular Hemoglobin 30.3 pg (27.0-31.2); Mean Corpuscular Volume 94.9 fl (81-99); Mean Platelet Volume 8.3 fl (7.4-10.4); Monocytes # 0.7 K/mm3 (0.1-1.0); Monocytes % 4.7 % (1.7-9.3); Neutrophils # 10.6 K/mm3 (1.8-7.8); Neutrophils % 77.9 % (37.0-80.0); Platelet Count 327 K/mm3 (142-424); Red Blood Count 4.37 M/mm3 (4.20-5.40); Red Cell Distribution Width 15.2 % (11.5-17.5); White Blood Count 13.7 K/mm3 (4.8-10.8)
== END ==
PROVIDERS: PCP Internal Medicine Adolescent Medicine; Visit Provider Neurological Surgery
DX: Z01.818 Encounter for other preprocedural examination (principal)
CPT/HCPCS: 36415; 85025

== ENCOUNTER → 2022-02-04 10:37 | Outpatient (CLI) | payer MEDICARE, SELFPAY ==
--- NOTE | 2022-02-04 10:40 | CT_ITS ---
FINAL REPORT TECHNIQUE: Axial images were performed through the lumbar spine by computed tomography. Sagittal reconstruction images were also performed. This study was performed with techniques to keep radiation doses as low as reasonably achievable, (ALARA). Individualized dose reduction techniques using automated exposure control or adjustment of mA and/or kV according to the patient's size were employed. CLINICAL HISTORY: ARTHRODESIS. 30 days post fusion. FINDINGS: There is posterior and interbody fusion of L5-S1. There is minimal spondylolisthesis of L5 on S1. The vertebrae are normal height. T12-L1: No significant neural foraminal narrowing or central canal stenosis. L1-L2: Mild to moderate endplate hypertrophy. Mild bilateral neural foraminal narrowing. L2-L3: Mild to moderate diffuse disc bulge with endplate hypertrophy. [id number] bilateral neural foraminal narrowing. L3-L4: Mild diffuse disc bulge with endplate hypertrophy. Mild bilateral neural foraminal narrowing. L4-L5: Mild diffuse disc bulge with endplate hypertrophy. There is bilateral facet hypertrophy. There is [id number] bilateral neural foraminal narrowing. L5-S1: Images are degraded by streak artifact. There are bilateral pars defects. There is moderate bilateral neural foraminal narrowing. IMPRESSION: Posterior and interbody fusion of L5-S1. Multilevel degenerative disc disease with areas of neural foraminal narrowing. Reviewed, Interpreted and Dictated by Kenneth Bryson MD Transcribed by Kirill Juárez Authenticated and [facility]
== END ==
PROVIDERS: PCP Internal Medicine Adolescent Medicine; Visit Provider Neurological Surgery
DX: M43.07 Spondylolysis, lumbosacral region (principal); Z98.1 Arthrodesis status
CPT/HCPCS: 72131

== ENCOUNTER → 2022-02-25 07:02 | Outpatient (CLI) | payer MEDICARE, SELFPAY ==
--- NOTE | 2022-02-25 07:34 | MR_ITS ---
FINAL REPORT TECHNIQUE: Multiplanar MR without gadolinium enhancement CLINICAL HISTORY: ARTHRODESIS STATUS. HISTORY LUMBAR SURGERY 7 WEEKS AGO. LEFT SIDED LOW BACK PAIN. LEG LEG PAIN, NUMBNESS, AND TINGLING SINCE SURGERY. FINDINGS: Sagittal images show normal vertebral height. There is 5 mm of retrolisthesis of L4 on L5. There is 6 mm of anterolisthesis of L5 on S1. There are postoperative changes from interbody fusion at L5-S1. There is marrow edema of the bilateral sacral bodies which may indicate sacral stress fractures. T12-L1: There is a minimal annular disc bulge. L1-2: There is a mild annular disc bulge. L2-3: There is a mild annular disc bulge. L3-4: There is a mild annular disc bulge and facet arthropathy. There is ligamentum flavum hypertrophy. There is borderline central canal stenosis. L4-5: There is a mild annular disc bulge with moderate facet arthropathy. There is mild central canal stenosis with moderate bilateral neural foraminal narrowing. L5-S1: There are postoperative changes from fusion. There is no central canal stenosis. There is severe bilateral neural foraminal narrowing. IMPRESSION: 1. Severe neural foraminal narrowing at L5-S1 related to spondylosis 2. Canal stenosis and neural foraminal narrowing at L4-5 related to degenerative changes. 3. Significant marrow edema of the bilateral sacrum which may be due to sacral insufficiency or sacral stress fractures although no discrete fracture line is seen. 4. Recommended dedicated MR of the pelvis with attention to the sacrum for further follow-up. Reviewed, Interpreted and Dictated by Catrina Farr MD Transcribed by Silvia Monahan Authenticated and [facility]
== END ==
PROVIDERS: PCP Internal Medicine Adolescent Medicine; Visit Provider Neurological Surgery
DX: M54.50 Low back pain, unspecified (principal)
CPT/HCPCS: 72148; 76376

== ENCOUNTER 2022-04-02 14:00 | Outpatient (RCR) | payer MEDICARE, SELFPAY | END 2022-04-02 14:05 | disposition home or self-care (01) | LOC: PT 14:00 | PROVIDERS: PCP Internal Medicine Adolescent Medicine; Visit Provider Neurological Surgery | DX: M43.26 Fusion of spine, lumbar region (principal); Z98.1 Arthrodesis status | CPT/HCPCS: 97010; 97014; 97110; 97163; G0283 ==

== ENCOUNTER → 2022-04-15 13:13 | Outpatient (CLI) | payer MEDICARE, SELFPAY ==
--- NOTE | 2022-04-15 13:18 | CT_ITS ---
FINAL REPORT TECHNIQUE: Thin section axial images were obtained through the lumbar spine without contrast. Sagittal and coronal reconstruction images were obtained from the axial data. Exam was performed using dose reduction techniques. CLINICAL HISTORY: ARTHRODESIS COMPARISON: 02/04/2022 FINDINGS: There is no acute fracture or acute malalignment of the lumbar spine. Vertebral body height is preserved. There is mild multilevel degenerative disease with disc space narrowing and osteophyte formation. There are postoperative changes of posterior fusion of L5 and S1. Hardware is intact. Paraspinal soft tissues are within normal limits. There is no paraspinal mass or fluid collection. L1-2: Broad-based disc osteophyte complex with mild central canal stenosis. There is mild, left greater than right neural foraminal narrowing. Findings appear similar to prior exam. L2-3: Broad-based disc osteophyte complex with [id number] central canal stenosis. There is moderate right and mild left neural foraminal narrowing. Findings are similar to prior exam. L3-4: Broad-based disc osteophyte complex with moderate central canal stenosis which appears worse from prior exam. Moderate, left greater than right neural foraminal narrowing is essentially stable. L4-5: Evaluation limited by hardware artifact. There is likely disc osteophyte complex. There is no convincing central canal stenosis. There is moderate bilateral neural foraminal narrowing. L5-S1: Evaluation limited by hardware artifact. No central canal stenosis. Stable, mild bilateral neural foraminal narrowing. IMPRESSION: Postoperative and degenerative changes, similar to slightly worse from prior exam. Reviewed, Interpreted and Dictated by Ashlie Flores MD Transcribed by Mahogany Leo Authenticated and [facility]
== END ==
PROVIDERS: PCP Internal Medicine Adolescent Medicine; Visit Provider Neurological Surgery
DX: M43.16 Spondylolisthesis, lumbar region (principal); Z98.1 Arthrodesis status
CPT/HCPCS: 72131

== ENCOUNTER → 2022-11-07 12:26 | Outpatient (CLI) | payer MEDICARE, SELFPAY ==
--- NOTE | 2022-11-07 12:34 | XR_ITS ---
FINAL REPORT TECHNIQUE: 3 views CLINICAL HISTORY: RT SIDED THORACICBACK PAIN FINDINGS: There is no fracture present. There is no malalignment. There are mild and moderate degenerative changes with osteophytes. IMPRESSION: No acute process. Reviewed, Interpreted and Dictated by Bean Iyer III, MD Transcribed by Mahogany Leo Authenticated and [facility]
== END ==
LOC: RAD 12:27
PROVIDERS: PCP Internal Medicine Adolescent Medicine; Visit Provider Internal Medicine Adolescent Medicine
DX: M54.6 Pain in thoracic spine (principal)
CPT/HCPCS: 72072

== ENCOUNTER → 2022-11-20 10:16 | Outpatient (CLI) | payer MEDICARE, SELFPAY ==
--- NOTE | 2022-11-20 10:19 | MR_ITS ---
FINAL REPORT CLINICAL HISTORY: ARTHRODESIS STATUS low back pain into right anterior leg pain, previous back surgery COMPARISON: 02/25/2022 FINDINGS: Multiplanar MR imaging of the lumbar spine was performed without contrast. On the sagittal T2-weighted images, there is abnormal decreased signal throughout the lumbar discs. The patient has undergone previous posterior and anterior interbody fusions at the L5-S1 level. The vertebrae are of normal height. There is retrolisthesis of L4 on L5, and anterolisthesis of L5 on S1. L1-2: There is no significant canal stenosis or neural foraminal narrowing. L2-3: An annular bulge is present with mild bilateral neural foraminal narrowing. L3-4: There is a small disc protrusion with an extruded portion extending superiorly, causing mild compromise of the left lateral recess. This is best seen on axial image #10 of series 2. This finding is new since the prior MRI. L4-5: There is a midline disc protrusion with an extruded portion extending inferiorly in the midline, producing mild to moderate canal narrowing, more prominent than noted on the previous MR. There is moderate bilateral neural foraminal narrowing at this level. L5-S1: There is heterotrophic change of the endplates, and facet osteoarthropathy bilaterally. There is moderate to severe bilateral neural foraminal narrowing at this level. IMPRESSION: Prior anterior and posterior fusion at the L5-S1 level as described. Multilevel degenerative change, with worsening at the L3-4 and L4-5 level since the prior MRI of January 2022. Reviewed, Interpreted and Dictated by Kenneth Bryson MD Transcribed by Muna Harris Authenticated and [facility]
== END ==
LOC: RAD 10:16
PROVIDERS: PCP Internal Medicine Adolescent Medicine; Visit Provider Neurological Surgery
DX: M54.50 Low back pain, unspecified (principal); Z98.1 Arthrodesis status
CPT/HCPCS: 72148; 76376

== ENCOUNTER → 2023-01-02 15:11 | Outpatient (CLI) | payer MEDICARE, SELFPAY ==
[2023-01-02 15:37] LABS: Microscopic, Urine URINE MICROSCOPIC (MICROSCOPIC)
[2023-01-02 16:23] LABS: Basophils % 0.4 % (0.1-2.0); Eosinophils # 0.2 K/mm3 (0.0-0.4); Eosinophils % 2.7 % (0.1-12.0); Hematocrit 37.7 % (37.0-47.0); Hemoglobin 11.9 g/dL (12.2-16.2); Lymphocytes # 1.8 K/mm3 (0.7-4.5); Lymphocytes % 23.4 % (10-50); Mean Corpuscular HGB Conc 31.7 g/dL (31.8-35.4); Mean Corpuscular Hemoglobin 29.5 pg (27.0-31.2); Mean Corpuscular Volume 93.1 fl (81-99); Mean Platelet Volume 8.5 fl (7.4-10.4); Monocytes # 0.5 K/mm3 (0.1-1.0); Monocytes % 6.3 % (1.7-9.3); Neutrophils # 5.2 K/mm3 (1.8-7.8); Neutrophils % 67.2 % (37.0-80.0); Platelet Count 243 K/mm3 (142-424); Red Blood Count 4.05 M/mm3 (4.20-5.40); Red Cell Distribution Width 16.1 % (11.5-17.5); White Blood Count 7.7 K/mm3 (4.8-10.8)
[2023-01-02 16:33] LABS: Activated Partial Thrombo Time 27.3 seconds (22.8-30.6); INR 0.95 (0.9-1.1); Prothrombin Time 10.3 seconds (10.1-12.5)
[2023-01-02 18:18] LABS: Appearance,Urine CLEAR (Clear); Bilirubin,Urine Negative (Negative); Blood, Urine Negative (Negative); Color,Urine YELLOW (Yellow); Glucose,Urine (UA) Negative (Negative); Ketones,Urine Negative (Negative); Leukocyte Esterase,Urine Negative (Negative); Nitrate,Urine Negative (Negative); PH,Urine 5.5 (5.0-8.5); Protein,Urine 2+ (Negative); Specific Gravity, Urine >= 1.030 (1.005-1.030); Urobilinogen,Urine 0.2 EU/dl (0.2)
[2023-01-02 19:04] LABS: Squamous Epithelial Cell,Urine Occasional #/hpf (0-5); WBC,Urine Occasional #/hpf (0-3)
== END ==
PROVIDERS: PCP Internal Medicine Adolescent Medicine; Visit Provider Neurological Surgery
DX: Z01.818 Encounter for other preprocedural examination (principal); I10 Essential (primary) hypertension
CPT/HCPCS: 36415; 81001; 85025; 85610; 85730

== ENCOUNTER → 2023-02-24 12:31 | Outpatient (CLI) | payer MEDICARE, SELFPAY ==
[2023-02-24 14:07] LABS: Activated Partial Thrombo Time 28.2 seconds (22.8-30.6); INR 0.97 (0.9-1.1); Prothrombin Time 10.5 seconds (10.1-12.5)
[2023-02-24 14:13] LABS: Calcium 8.8 mg/dl (8.4-10.2)
[2023-02-24 14:14] LABS: Basophils % 0.5 % (0.1-2.0); Eosinophils # 0.2 K/mm3 (0.0-0.4); Eosinophils % 2.1 % (0.1-12.0); Hematocrit 41.5 % (37.0-47.0); Hemoglobin 13.7 g/dL (12.2-16.2); Lymphocytes # 1.7 K/mm3 (0.7-4.5); Lymphocytes % 21.4 % (10-50); Mean Corpuscular HGB Conc 32.9 g/dL (31.8-35.4); Mean Corpuscular Hemoglobin 31.3 pg (27.0-31.2); Mean Corpuscular Volume 95.1 fl (81-99); Mean Platelet Volume 8.5 fl (7.4-10.4); Monocytes # 0.4 K/mm3 (0.1-1.0); Monocytes % 4.4 % (1.7-9.3); Neutrophils # 5.6 K/mm3 (1.8-7.8); Neutrophils % 71.5 % (37.0-80.0); Platelet Count 271 K/mm3 (142-424); Red Blood Count 4.37 M/mm3 (4.20-5.40); Red Cell Distribution Width 15.2 % (11.5-17.5); White Blood Count 7.8 K/mm3 (4.8-10.8)
[2023-02-24 14:25] LABS: Intact Parathyroid Hormone 83.1 pg/mL (7.5-53.5)
[2023-02-24 15:25] LABS: Microscopic, Urine URINE MICROSCOPIC (MICROSCOPIC)
[2023-02-24 16:16] LABS: Appearance,Urine CLEAR (Clear); Bilirubin,Urine Negative (Negative); Blood, Urine Negative (Negative); Color,Urine YELLOW (Yellow); Glucose,Urine (UA) Negative (Negative); Ketones,Urine Negative (Negative); Leukocyte Esterase,Urine Negative (Negative); Nitrate,Urine Negative (Negative); Protein,Urine 3+ (Negative); Specific Gravity, Urine >= 1.030 (1.005-1.030); Urobilinogen,Urine 0.2 EU/dl (0.2)
[2023-02-24 16:57] LABS: Squamous Epithelial Cell,Urine Occasional #/hpf (0-5); WBC,Urine Occasional #/hpf (0-3)
== END ==
PROVIDERS: PCP Internal Medicine Adolescent Medicine; Visit Provider Neurological Surgery
DX: Z01.812 Encounter for preprocedural laboratory examination; E21.3 Hyperparathyroidism, unspecified; Z51.81 Encounter for therapeutic drug level monitoring
CPT/HCPCS: 36415; 81001; 82310; 83970; 85025; 85610; 85730; 86850

== ENCOUNTER 2023-06-17 11:12 | Outpatient (CLI) | payer MEDICARE, SELFPAY ==
--- NOTE | 2023-06-17 11:18 | XR_ITS ---
FINAL REPORT CLINICAL HISTORY: CERVICALGIA FINDINGS: CERVICAL SPINE Six views demonstrate no acute fracture. There are mild and moderate degenerative changes with osteophytes. There is mild anterolisthesis of C3 on 4. There is mild right C5-6 neural foraminal narrowing. IMPRESSION: Degenerative changes as detailed above. Reviewed, Interpreted and Dictated by Bean Iyer III, MD Transcribed by Vivian Sepulveda Authenticated and [facility]
== END 2023-06-17 23:59 ==
LOC: RAD 11:15
PROVIDERS: PCP Internal Medicine Adolescent Medicine; Visit Provider Internal Medicine Adolescent Medicine
DX: M54.2 Cervicalgia (principal)
CPT/HCPCS: 72050

== ENCOUNTER 2023-08-12 18:53 | Outpatient (CLI) | payer MEDICARE, SELFPAY ==
--- NOTE | 2023-08-12 18:56 | MR_ITS ---
PROCEDURE INFORMATION: Exam: MR Lumbar Spine Without Contrast Exam date and time: 08/12/2023 7:04 PM Age: 77 years old Clinical indication: Low back pain; Prior surgery; Surgery date: 6+ months; Surgery type: Fusion; Additional info: Lumbar radiculopathy TECHNIQUE: Imaging protocol: Magnetic resonance imaging of the lumbar spine without contrast. COMPARISON: MR LUMBAR SPINE WO CON 11/20/2022 10:19 AM FINDINGS: Bones/joints: No fractures. There are bilateral iliac fixation screws present via posterior approach which are new since 11/20/2022, without gross complication. Spinal cord: Visualized portions of the distal cord/conus medullaris are normal with the conus terminalis ending at L1. T11-T12: 8 mm left foraminal root sheath cyst T11-T12 slightly increased in size from 11/20/2022. T12-L1: No change. Mild anterior spurring. Disc desiccation. Mild chronic Schmorl's node formation. Mild chronic reactive endplate changes with T1 hyperintensity. Minimal 1.5 mm posterior central annular protrusion and mild bilateral facet/ligamentum flavum hypertrophy. No canal or foraminal stenosis. 4 mm left foraminal root sheath cyst unchanged. L1-L2: No change. Moderate anterior spurring. Moderate-severe disc space narrowing. Disc desiccation. Chronic Schmorl's node formation. Broad-based posterior annular disc bulge measuring 3 mm AP. Mild facet/ligamentum flavum hypertrophy. No central canal stenosis. No lateral recess stenosis. No significant foraminal stenosis. L2-L3: No change. Disc desiccation. Mild anterolateral spurring. Minimal chronic Schmorl's node formation. Mild disc space narrowing. 2.5 mm broad-based posterior annular disc bulge with broad chronic left foraminal annular protrusion measuring 3.5 mm AP. Mild facet/ligamentum flavum hypertrophy. No central canal stenosis or lateral recess stenosis. Mild left foraminal stenosis. L3-L4: No change. Disc desiccation. Minimal anterior spurring. Mild disc space narrowing. Broad-based posterior annular disc bulge measuring 2.5 mm AP. Moderate bilateral facet/ligamentum flavum hypertrophy. Mild-moderate central canal stenosis, AP thecal sac dimension 8.3 mm at the midline. Mild-moderate lateral recess stenosis bilaterally. Mild-moderate left and mild right foraminal stenosis. L4-L5: Disc desiccation. Moderate disc space narrowing mildly increased, with new mild acute reactive endplate changes showing STIR hyperintensity. 4 mm retrolisthesis with broad-based disc bulge and posterior spondylotic ridge measuring 3 mm AP. Small chronic central to left paracentral disc extrusion measuring 7.5 mm AP and extending 8 mm inferiorly from the posterior disc margin is unchanged. Moderate osteoarthritic facet hypertrophy bilaterally. Moderate-severe left and moderate right lateral recess stenosis. Moderate-severe left and moderate right foraminal stenosis. L5-S1: No change. Interbody fusion elements appears well incorporated without evidence of displacement or subsidence. Bilateral posterior pedicle screw/alisa fixation hardware without gross complication or change, although MRI susceptibility effects limit hardware assessment. 3 mm chronic anterolisthesis. No canal stenosis. Mild bilateral foraminal stenosis. Soft tissues: No acute soft tissue abnormalities. Expected postoperative changes in the retro spinous soft tissues. Minor dependent subcutaneous swelling over the lower lumbar region unchanged. No fluid collections. Kidneys and ureters: Bilateral T2 hyperintense renal cortical cysts which do not require further assessment based on the visualized features. IMPRESSION: 1. Progression of disc degenerative changes at L4-L5 with new acute Modic changes showing STIR hyperintensity. 2. Multilevel stable chronic findings also present, detailed above. 3. An 8 mm T11-T12 left foraminal root sheath cyst is mildly increased in size from 11/20/2022, of doubtful significance.
== END 2023-08-12 23:59 | disposition home or self-care (01) ==
LOC: RAD 18:54
PROVIDERS: PCP Internal Medicine Adolescent Medicine; Visit Provider Neurological Surgery
DX: M51.26 Other intervertebral disc displacement, lumbar region (principal); M54.16 Radiculopathy, lumbar region
CPT/HCPCS: 72148

== ENCOUNTER 2023-10-28 15:43 | Outpatient (CLI) | payer MEDICARE, SELFPAY ==
--- NOTE | 2023-10-28 | MR_ITS ---
FINAL REPORT CLINICAL HISTORY: LOWER BACK PAIN WITH LEFT LEG NUMBNESS PRIOR BACK SURGERY 16 ML [facility] COMPARISON: 08/12/2023 FINDINGS: Multiplanar MR imaging of the lumbar spine was performed without and with contrast. On the sagittal T2-weighted images, abnormal decreased signal is seen in the lower thoracic and lumbar spine. Magnetic susceptibility artifact is seen from posterior and interbody fusion hardware at L5-S1. The vertebral alignment is normal. There is no evidence of fracture. L1-2: Mild diffuse disc bulge is present with mild bilateral neural foraminal narrowing. L2-3: Mild diffuse disc bulge is present with mild bilateral neural foraminal narrowing. L3-4: Mild to moderate diffuse disc bulge is present. There is bilateral facet hypertrophy with moderate spinal and bilateral neural foraminal narrowing. L4-5: Mild to moderate diffuse disc bulge is present. There is mild spinal and mild to moderate bilateral neural foraminal narrowing. L5-S1: Diffuse endplate hypertrophy is present with moderate bilateral neural foraminal narrowing. There are multiple benign-appearing cysts in both kidneys. No abnormal contrast enhancement is identified. IMPRESSION: Posterior and interbody fusion hardware at L5-S1. Multilevel degenerative disc disease with spinal and neural foraminal compromise as above. Reviewed, Interpreted and Dictated by Kenneth Bryson MD Transcribed by Vivian Sepulveda Authenticated and [facility]
[2023-10-28 16:23] LABS: Blood Urea Nitrogen 27 mg/dl (7-17); Estimated Glomerular Filt Rate 34 ml/min (>60); GFR (African American) 41 ML/MIN (>60)
== END 2023-10-28 23:59 | disposition home or self-care (01) ==
LOC: RAD 15:43
PROVIDERS: PCP Internal Medicine Adolescent Medicine; Visit Provider Physician Assistant
DX: M51.26 Other intervertebral disc displacement, lumbar region (principal); M54.16 Radiculopathy, lumbar region; M48.07 Spinal stenosis, lumbosacral region; M43.16 Spondylolisthesis, lumbar region
CPT/HCPCS: 36415; 72158; 82565; 84520; A9576

== ENCOUNTER 2023-12-07 15:09 | Emergency (ER) | payer MEDICARE, SELFPAY ==
[2023-12-07] VITALS (8 sets, daily range): BP systolic 163–179; BP diastolic 73–91; PULSE 68–79; RESP 18–20; TEMP 36.7; O2SAT 95–100; BMI 31.1
[2023-12-07] MEDS: FLUORESCEIN SODIUM 1MG STRIP 1 MG OP (15:43)
--- NOTE | 2023-12-07 16:04 | HMH.EDGENADL ---
Discharge Plan Disposition Patient Disposition: Xfer Short-Term Hosp Chief Complaint: Eye Problems Prescriptions Prescriptions: No Action lisinopril 20 MG Tablet 20 mg PO DAILY levothyroxine 50 MCG Tablet 50 mcg PO DAILY triamterene-hydrochlorothiazid 1 EACH Tablet 37.5 mg PO DAILY omeprazole 20 MG Capsule.Dr 20 mg PO DAILY Referrals Follow up/Referrals: Lukas Birmingham MD [Primary Care Provider] - See instructions Clinical Impressions Clinical Impression: Acute left eye pain, Corneal ulcer, Pain of scalp Print Language Print Language: Azeri Discharge ED Provider: Parish Garza General Adult HPI General Chief complaint: Eye Problems Stated complaint: head and eye pain Time Seen by Provider: 12/07/23 15:15 Mode of Arrival: Family Vehicle Source of Information: Patient and Medical Record Limitations: No Limitations Description of Symptoms (Recalled from ER Triage Doc. by RN): Pt c/o pain left eye with movement. Denies any new injury or grinding/wood chipping. 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 Reports blurriness with vision but clears away after tears clear. Denies any fever. History of Present Illness HPI narrative: Please note that above description of symptoms, in this electronic medical record under categorization of recalled from ER triage doctor by RN are reflective of an initial nursing assessment, however, is not reflective of my full history and physical exam that was personally taken and clarified. Consequentially, this preceding description of symptoms, which may include the patient's categorized chief complaint in the EMR, do not reflect my personal clinical impression, and the ultimate description of history of present illness and patient stated complaints should be deferred to this section of the note. Unless stated otherwise or congruent with this section of the note, additional signs, symptoms, or incongruence should be interpreted as inaccurate with my clinical impression. Related Data Home Medications ?Medication ?Instructions ?Recorded ?Confirmed levothyroxine 50 mcg tablet 50 mcg PO DAILY HYPOTHYROID 09/29/17 10/10/17 lisinopril 20 mg tablet 20 mg PO DAILY High blood pressure 09/29/17 10/10/17 omeprazole 20 mg capsule,delayed 20 mg PO DAILY Heartburn 09/29/17 10/10/17 release triamterene 37.5 37.5 mg PO DAILY Hypertension 09/29/17 10/10/17 mg-hydrochlorothiazide 25 mg tablet Allergies Allergy/AdvReac Type Severity Reaction Status Date / Time codeine Allergy Unknown NA-NAUSEA/V Verified 10/10/17 12:19 OMITING SOLAREZGEL Allergy Unknown S-BLISTERING Uncoded 03/18/17 14:33 [facility] Disclaimer: The information contained in this section may have been updated after the patient was seen, as this information can be updated by other users. Social History Smoking Status: Never smoker alcohol intake: never current occupational status: employed and other Travel in the last 8 weeks: None housing: house caffeine: Yes ROS Obtained: Yes All systems reviewed & no additional complaints except as documented Physical Exam General General appearance: alert, in distress (Mild distress due to pain) and obese Head Head exam: atraumatic, normocephalic and other (Patient has severe scalp tenderness left-sided overlying parietal scalp, temporal scalp, no obvious, palpable vascular cord) Eye Eye exam: Present normal appearance, PERRL, EOMI, conjunctival injection, periorbital tenderness and other (No evidence of hyphema, proptosis, entrapment, conjunctival hemorrhage, pupillary changes, cellulitic change, obvious foreign body, or otherwise irregular ocular findings. Fluorescein staining with focal uptake about 0.25 cm x 0.5 cm 6 o'clock position overlying iris. Cloudy in this area. IOP 13.); Absent periorbital swelling ENT ENT exam: Present other (No jaw claudication or lymphadenopathy) Neck Neck exam: Present normal inspection, full ROM and trachea midline; Absent lymphadenopathy Respiratory Respiratory exam: Absent respiratory distress, wheezes, stridor, accessory muscle use or prolonged expiratory phase Cardiovascular Cardiovascular exam: Present regular rate, normal rhythm and other (Pulses equal symmetric in upper and lower extremities) Abdominal Exam Abdominal exam: Present soft; Absent distention, tenderness or pulsatile mass Extremities Exam Extremities exam: Absent edema Neurological Exam Neurological exam: Present alert, oriented X3 and CN II-XII intact; Absent motor sensory deficit Skin Skin exam: Present warm and dry; Absent diaphoresis or erythema Medical Decision Making Medical Records Medical records reviewed: Yes I reviewed the patient's medical records. Saul Inquiry Pt receiving controlled substance: No Saul was queried for this patient: No Vital Signs: 12/07/23 15:11 Temperature 98.0 F Temperature Source Oral Pulse Rate [Right] 77 Respiratory Rate 20 Blood Pressure [Right Arm] 179/91 H Blood Pressure Mean [Right Arm] 120 Blood Pressure Source [Right Arm] Automatic Cuff 02 Sat by Pulse Oximetry 97 Oxygen Delivery Method Room Air Lab Data Lab Results 12/07/23 16:25: WBC 11.4 H, RBC 4.02 L, Hgb 12.2, Hct 39.7, MCV 98.9, MCH 30.5, MCHC 30.8 L, RDW 16.0, Plt Count 257, MPV 8.5, Neut % (Auto) 80.8 H, Lymph % (Auto) 12.4, [place] % (Auto) 4.9, Eos % (Auto) 1.5, Baso % (Auto) 0.4, Neut # (Auto) 9.2 H, Lymph # (Auto) 1.4, [place] # (Auto) 0.6, Eos # (Auto) 0.2, Baso # (Auto) 0.0, ESR 52 H, Sodium 140, Potassium 4.1, Chloride 107, Carbon Dioxide 29, Anion Gap 8.1, BUN 18 H, Creatinine 1.00, Estimated Creat Clear 60, Estimated GFR 54 L, Est GFR ( Amer) 65, Glucose 136 H, Calcium 9.1, Total Bilirubin 0.4, AST 32, ALT 26, Alkaline Phosphatase 105, C-Reactive Protein 19.3 H, Total Protein 6.9, Albumin 3.8, Globulin 3.1, Albumin/Globulin Ratio 1.2, TSH 0.55, Thyroxine (T4) 11.8 H 12/07/23 16:25 12/07/23 16:25 Orders (Tests/Meds): ED MEDICATIONS Discontinued Medications Generic Name Dose Route Start Last Admin Trade Name Leilani PRN Reason Stop Dose Admin Acetaminophen 1,000 mg 12/07/23 16:07 12/07/23 16:32 Acetaminophen 500mg Tab PO 12/07/23 16:08 1,000 mg ONCE ONE Administration Dexamethasone Sodium Phosphate 10 mg 12/07/23 16:07 12/07/23 16:33 Dexamethasone 4mg/Ml 1ml Vial IV 12/07/23 16:08 10 mg ONCE ONE Administration Diphenhydramine HCl 25 mg 12/07/23 16:07 12/07/23 16:34 Diphenhydramine 50mg/Ml Vial IV 12/07/23 16:08 25 mg ONCE ONE Administration Fluorescein Sodium 1 mg 12/07/23 15:43 Fluorescein Sodium 1mg Strip OP 12/07/23 15:44 ONCE ONE Magnesium Sulfate 2 gm in 50 mls @ 50 mls/hr 12/07/23 16:07 12/07/23 16:32 Magnesium Sulfate 2gm/50ml Premix IV 12/07/23 17:06 50 mls/hr ONCE ONE Administration Sodium Chloride 500 mls @ 999 mls/hr 12/07/23 16:15 12/07/23 16:33 Sod Chlor 0.9% 1000ml Bag IV 12/07/23 16:45 999 mls/hr .Q31M ARLEY Administration Acyclovir Sodium 600 mg/ 250 mls @ 250 mls/hr 12/07/23 16:47 Sodium Chloride IV 12/07/23 16:48 ONCE ONE Iopamidol 80 ml 12/07/23 17:51 12/07/23 17:51 Iopamidol-370 (76%);100ml Bottle IV 12/07/23 17:52 80 ml ONCE ONE Administration Ketorolac Tromethamine 15 mg 12/07/23 16:07 12/07/23 16:34 Ketorolac 30mg/Ml Vial IV 12/07/23 16:08 15 mg ONCE ONE Administration Neomycin/Polymyxin/Bacitracin 1 gm 12/07/23 15:45 Hzkfikwf-Ewjvk-Tabku Ophth Oint 3.5gm Tube OP 12/07/23 15:46 ONCE ONE Neomycin/Polymyxin/Gramicidin 1 ml 12/07/23 15:44 Ualrbnvi-Vldmuy-Dzdv Ophth Soln 10ml Bottle OP 12/07/23 15:45 ONCE ONE Prochlorperazine Edisylate 10 mg 12/07/23 16:07 12/07/23 16:33 Prochlorperazine 10mg/2ml Vial IV 12/07/23 16:08 10 mg ONCE ONE Administration Sodium Chloride 50 ml 12/07/23 17:51 12/07/23 17:51 0.9 % Sodium Chloride 50 Ml Vial IV 12/07/23 17:52 50 ml ONCE ONE Administration Sodium Chloride 10 ml 12/07/23 17:51 12/07/23 17:51 Sodium Chloride 0.9% 10ml Syr (Rad Only) IV 12/07/23 17:52 10 ml ONCE ONE Administration ORDERS Category Date Time Status CT Venogram head Stat Cat Scan 12/07/23 16:[address] head/brain wo con Stat Cat Scan 12/07/23 16:12 Taken CBC w/Auto Diff [Complete Blood Count Auto Diff] Stat Lab 12/07/23 16:25 Completed CMP [Comprehensive Metabolic Panel] Stat Lab 12/07/23 16:25 Completed CRP [C-Reactive Protein] Stat Lab 12/07/23 16:25 Completed ESR [Erythrocyte Sedimentation Rate] Stat Lab 12/07/23 16:25 Completed T4 (Thyroxine) Stat Lab 12/07/23 16:25 Completed TSH [Thyroid Stimulating Hormone] Stat Lab 12/07/23 16:25 Completed Medical Decision Narrative: 78-year-old female history of hypertension hypothyroidism, GERD, bilateral cataract removal surgeries presenting with left eye pain. Patient states that she went to bed just fine last night, 12/05. Woke up today, had severe pain in her left eye. She states that it does not feel like a headache. It is in her left eye, radiates into her left scalp. No double vision or blurry vision, but pain is severe in intensity and worsening. Denies fevers, chills, weight loss, night sweats, jaw claudication, meningismus, unintended weight loss, rash, dark or discolored urine, blood in her urine or stool, trauma to the area, pain like this in the past, etc. She is tried Tylenol and Motrin, these have not helped. Came for further evaluation given severity of pain. History was obtained via conversation with patient. On arrival, patient hemodynamically stable, alert, oriented x4, appropriate, GCS 15, moving all extremities spontaneously, pupils equal and reactive to light. Full physical exam performed and significant for uncomfortable appearing woman who is in mild distress secondary to pain. Holding her left eye and left side of her head. Scalp tenderness on parietal and temporal scalp laterally on the left side without palpable vascular cord. Pupils 3 mm and reactive bilaterally. No evidence of photophobia in either eye, no evidence of consensual photophobia. Left-sided conjunctival injection not sparing limbus. Lens and cornea do not appear cloudy. No evidence of hyphema, proptosis, entrapment, conjunctival hemorrhage, pupillary changes, cellulitic change, obvious foreign body, or otherwise irregular ocular findings. Fluorescein staining with focal uptake about 0.25 cm x 0.5 cm 6 o'clock position overlying iris. Cloudy in this area. IOP 13. Visual acuity 20/30 OS, 20/30 OD, 20/30 bilaterally. Differential includes corneal ulcer, corneal abrasion, cluster headache, migraine, nonarteritic ischemic optic neuritis, arteritic ischemic optic neuritis, endophthalmitis, among others. Patient placed on continuous cardiac monitoring and continuous pulse ox with initial blood pressure 171/91, heart rate 77, saturation 97. Patient was given topical tetracaine, migraine cocktail for symptomatic management and correction of underlying abnormalities. Workup independently interpreted and significant for leukocytosis 11.4 with neutrophilia. Patient's ESR is elevated at 52, CRP elevated at 20. Chemistry otherwise unremarkable. CT head without acute intracranial abnormality. CT venogram without obvious evidence of cerebral venous sinus thrombosis on independent interpretation of imaging. See radiology read for full review of final results. On reevaluation, patient still in significant scalp pain. Patient was given 10 Mg per KG IV acyclovir. Already received steroid with migraine cocktail, but given more concern for zoster ophthalmicus, full dose steroid opted out of at this time. Given patient presentation, workup, history, this most likely represents zoster ophthalmicus versus giant cell arteritis. Ophthalmology at [facility] was contacted and case was discussed at length, graciously excepted transfer. Because patient high risk for clinical decompensation if discharged, deemed appropriate for transfer and inpatient admission. Results were relayed to patient who voiced understanding and patient was agreeable to transfer, inpatient admission, and management. Patient was graciously accepted and transferred to [facility] for further definitive management, under Dr. Schaeffer. Traffic Or System Dispatcher disclaimer Much of this encounter note is an electronic form grader spoken language to printed text. Electronic form grader of the spoken language may permit errors. Although I have reviewed the note, some errors may still exist. Critical Care Critical Care Time Critical Care Time: Yes (ophthalmologic) Attestation: On 12/07/23, the high probability of a clinically significant, sudden or life threatening deterioration of the following system(s) required my full and direct attention, intervention and personal management. The time I documented below is in addition to time spent performing reported procedures but includes the following listed in this critical care notation. Total Time Total Critical Care Time: 60
--- NOTE | 2023-12-07 16:12 | CT_ITS ---
PROCEDURE INFORMATION: Exam: CTA Head With Contrast, Venography Exam date and time: 12/07/2023 5:50 PM Age: 78 years old Clinical indication: Other: Isolated L eye pain with eom TECHNIQUE: Imaging protocol: Computed tomography angiography of the head with contrast. Exam focused on the veins. 3D rendering (Not supervised by radiologist): MIP and/or 3D reconstructed images were created by the technologist. Radiation optimization: All CT scans at this facility use at least one of these dose optimization techniques: automated exposure control; mA and/or kV adjustment per patient size (includes targeted exams where dose is matched to clinical indication); or iterative reconstruction. Contrast material: ISOVUE; Contrast volume: 80 ml; Contrast route: INTRAVENOUS (IV); COMPARISON: 1. CT HEAD/BRAIN WO CON 12/07/2023 5:47 PM 2. CR XR CERVICAL SPINE 5V 06/17/2023 11:35 AM FINDINGS: Superior sagittal sinus: Patent. Straight sinus: Patent. Transverse sinuses: Patent. Sigmoid sinuses: Patent. Internal jugular veins: Limited visualized internal jugular veins are patent. Brain: No definite mass, mass effect, or midline shift. Cerebral ventricles: No ventriculomegaly. Soft tissues: Unremarkable. IMPRESSION: No venous thrombosis.
--- NOTE | 2023-12-07 16:12 | CT_ITS ---
PROCEDURE INFORMATION: Exam: CT Head Without Contrast Exam date and time: 12/07/2023 5:47 PM Age: 78 years old Clinical indication: Pain; Other: Right knee injury, proximal fibula fracture TECHNIQUE: Imaging protocol: Computed tomography of the head without contrast. Radiation optimization: All CT scans at this facility use at least one of these dose optimization techniques: automated exposure control; mA and/or kV adjustment per patient size (includes targeted exams where dose is matched to clinical indication); or iterative reconstruction. COMPARISON: CR XR CERVICAL SPINE 5V 06/17/2023 11:35 AM FINDINGS: Brain: Normal. No hemorrhage. Unremarkable white matter. No mass effect. Cerebral ventricles: No ventriculomegaly. Paranasal sinuses: Visualized sinuses are unremarkable. No fluid levels. Mastoid air cells: Visualized mastoid air cells are well aerated. Bones: Unremarkable. No acute fracture. Soft tissues: Unremarkable. IMPRESSION: No evidence of acute intracranial abnormality.
[2023-12-07] MEDS: ACETAMINOPHEN 500MG TAB 1000 MG PO (16:32)
[2023-12-07] MEDS: MAGNESIUM SULFATE IN WATER 2 GM/50 ML PIGGYBACK IV (16:32)
[2023-12-07] MEDS: 0.9 % SODIUM CHLORIDE 1000ML 500 ML 999 ML IV (16:33)
[2023-12-07] MEDS: PROCHLORPERAZINE 10MG/2ML VIAL 10 MG IV (16:33)
[2023-12-07] MEDS: DEXAMETHASONE 4MG/ML 1ML VIAL 10 MG IV (16:33)
[2023-12-07] MEDS: KETOROLAC 30MG/ML VIAL 15 MG IV (16:34)
[2023-12-07] MEDS: diphenhydrAMINE 50MG/ML VIAL 25 MG IV (16:34)
[2023-12-07 16:42] LABS: Basophils % 0.4 % (0.1-2.0); Eosinophils # 0.2 K/mm3 (0.0-0.4); Eosinophils % 1.5 % (0.1-12.0); Hematocrit 39.7 % (37.0-47.0); Hemoglobin 12.2 g/dL (12.2-16.2); Lymphocytes # 1.4 K/mm3 (0.7-4.5); Lymphocytes % 12.4 % (10-50); Mean Corpuscular HGB Conc 30.8 g/dL (31.8-35.4); Mean Corpuscular Hemoglobin 30.5 pg (27.0-31.2); Mean Corpuscular Volume 98.9 fl (81-99); Mean Platelet Volume 8.5 fl (7.4-10.4); Monocytes # 0.6 K/mm3 (0.1-1.0); Monocytes % 4.9 % (1.7-9.3); Neutrophils # 9.2 K/mm3 (1.8-7.8); Neutrophils % 80.8 % (37.0-80.0); Platelet Count 257 K/mm3 (142-424); Red Blood Count 4.02 M/mm3 (4.20-5.40); White Blood Count 11.4 K/mm3 (4.8-10.8)
[2023-12-07 16:46] LABS: Alanine Aminotransferase 26 U/L (12-78); Albumin Level 3.8 g/dl (3.5-5.0); Albumin/Globulin Ratio 1.2 (1.1-1.8); Alkaline Phosphatase 105 U/L (38-126); Anion Gap 8.1 mEq/L (5-15); Aspartate Amino Transferase 32 U/L (14-36); Bilirubin,Total 0.4 mg/dl (0.2-1.3); Blood Urea Nitrogen 18 mg/dl (7-17); Calcium 9.1 mg/dl (8.4-10.2); Carbon Dioxide 29 mmol/L (22.0-30.0); Chloride 107 mmol/L (98-107); Creatinine Clearance Estimated 60 mL/min (50-200); Estimated Glomerular Filt Rate 54 ml/min (>60); GFR (African American) 65 ML/MIN (>60); Globulin 3.1 g/dL (1.3-3.2); Glucose 136 mg/dl (74-100); Potassium 4.1 mmoL/L (3.5-5.1); Sodium 140 mmol/L (136-145); Total Protein,Serum 6.9 g/dl (6.3-8.2)
[2023-12-07 16:51] LABS: C-Reactive Protein 19.3 mg/L (0-4)
[2023-12-07 17:07] LABS: T4 (Thyroxine) 11.8 ug/dl (5.53-11.0)
[2023-12-07 17:19] LABS: Thyroid Stimulating Hormone 0.55 uIU/mL (0.465-4.68)
--- NOTE | 2023-12-07 17:22 | PC.NURSE ---
Pt c/o continued pain. States her eye and the bahai pain is unchanged. Dr. Garza notified.
[2023-12-07 17:42] LABS: Erythrocyte Sedimentation Rate 52 mm/hr (0-30)
[2023-12-07] MEDS: IOPAMIDOL-370 (76%);100ML BOTTLE 80 ML IV (17:51)
[2023-12-07] MEDS: SODIUM CHLORIDE 0.9% 10ML SYR (RAD ONLY) 10 ML IV (17:51)
[2023-12-07] MEDS: 0.9 % SODIUM CHLORIDE 50 ML VIAL IV (17:51)
--- NOTE | 2023-12-07 18:15 | PC.NURSE ---
On phone with [facility] center; Dr. Garza request consult from Opthamology/ They advised Opthamology has been pretty quick today so I am on hold waiting for response.
[2023-12-07] MEDS: ACYCLOVIR SODIUM 600 MG in 0.9 % SODIUM CHLORIDE 250 ML 250 MG IV (18:30)
[2023-12-07] MEDS: NEOMYCIN-POLYMY-GRAM OPHTH SOLN 10ML BOTTLE OP (18:34)
[2023-12-07] MEDS: NEOMYCIN-BACIT-POLYM OPHTH OINT 3.5GM TUBE 1 GM OP (18:34)
[2023-12-07] MEDS: OXYCODONE 5MG IMMEDIATE RELEASE TABLET 5 MG PO (18:35)
== END 2023-12-07 19:28 | disposition short-term general hospital (02) ==
PROVIDERS: Emergency Provider Emergency Medicine; PCP Internal Medicine Adolescent Medicine
DX: H16.001 Unspecified corneal ulcer, right eye (principal); H57.12 Ocular pain, left eye; G44.89 Other headache syndrome
CPT/HCPCS: 70450; 70496; 80053; 84436; 84443; 85025; 85651; 86140; 96365; 96366; 96375; 99285; J0780; J1100; J1200; J1885; J3475; J7030; Q9967

== ENCOUNTER 2024-02-25 13:51 | Outpatient (CLI) | payer MEDICARE, SELFPAY ==
--- NOTE | 2024-02-25 13:54 | MM_ITS ---
PROCEDURE INFORMATION: Exam: MG Bilateral Screening 3D Mammography Exam date and time: 02/25/2024 1:49 PM Age: 78 years old Clinical indication: Screening examination. Three sisters had breast cancer. Her daughter had breast cancer at age 47. TECHNIQUE: Imaging protocol: Bilateral Screening tomosynthesis and 2D mammography including computer-aided detection (CAD) when performed. COMPARISON: 1. MG MM DIG SCREENING MAMM BI W/CAD 08/04/2020 11:02 AM 2. MG DIG MAMM-SCREEN STEFANO 09/28/2018 11:09 AM 3. MG DMSB DIG MAMM-SCREEN STEFANO W/CAD 07/22/2016 10:00 AM 4. MG DMSB DIGITAL MAMM-SCREEN BILATERAL 01/19/2010 8:39 AM FINDINGS: MAMMOGRAPHY: Breast composition: The breasts are almost entirely fatty. Mass: None. Architectural distortion: None. Calcifications: No suspicious calcifications. Asymmetric density: None. Skin thickening: None. Axillary adenopathy: None. IMPRESSION: No mammographic evidence of malignancy. Annual screening is recommended unless otherwise clinically indicated. ASSESSMENT: BI-RADS Category 1: Negative.
== END 2024-02-25 23:59 | disposition home or self-care (01) ==
LOC: RAD 13:52
PROVIDERS: PCP Internal Medicine Adolescent Medicine; Visit Provider Internal Medicine Adolescent Medicine
DX: Z12.31 Encounter for screening mammogram for malignant neoplasm of breast (principal)
CPT/HCPCS: 77063; 77067